=== PATIENT | male | born 1975 | race Caucasian/White ===

== ENCOUNTER 2022-02-06 12:07 | Emergency (ER) | payer OTHER ==
[~2022-02-06] VITALS: Ht 165.1 cm; Wt 106.6 kg
[2022-02-06 12:32] VITALS: BP 113/76
--- NOTE | 2022-02-06 12:40 | NUR ---
REFERRED FROM CLINIC FOR R/O DVT. C/O LEFT CALF PAINX3 DAYS. PMH: DM, HTN, HLD
[2022-02-06] MEDS ORDERED: CYCL-711 PO (13:49)
--- NOTE | 2022-02-06 13:57 | NUR ---
BRENDA WRAP APPLIED TO L CALF
[2022-02-06 14:10] VITALS: BP 117/65
--- NOTE | 2022-02-06 14:10 | NUR ---
Patient discharged with v/s stable. Written and verbal after care instructions given and explained. Patient alert, oriented and verbalized understanding of instructions. Ambulatory with [facility]. All questions addressed prior to discharge. ID band removed. Patient advised to follow up with PMD. Rx of FLEXERIL given. Patient educated on indication of medication including possible reaction and side effects. Opportunity to ask questions provided and answered.
== END 2022-02-06 14:18 | disposition home or self-care (01) ==
LOC: MED 12:07
DX: S86.812A Strain of other muscle(s) and tendon(s) at lower leg level, left leg, initial encounter (principal); E11.9 Type 2 diabetes mellitus without complications; I10 Essential (primary) hypertension; E78.5 Hyperlipidemia, unspecified; Z79.899 Other long term (current) drug therapy; W22.8XXA Striking against or struck by other objects, initial encounter; Y93.89 Activity, other specified; Y92.89 Other specified places as the place of occurrence of the external cause; Y99.8 Other external cause status
CPT/HCPCS: 93971; 99284; Q0092